=== PATIENT | male | born 1960 ===

== ENCOUNTER 2020-10-09 07:58 | Inpatient (IN) ==
[2020-10-09] MEDS ORDERED: NS 0.9% 1000 ml BAG 1,000 ML IV ONE (08:20)
[2020-10-09 09:12] LABS: ABS Lymphocytes 0.7 10^3/ul (1.0-4.8); ABS Monocytes 0.6 10^3/ul (0-0.8); ABS Neutrophils 9.3 10^3/ul (1.5-7.7); Eosinophil % 0.4 %; Hematocrit 48 % (42-52); Hemoglobin 16.6 g/dL (14.0-18.0); Lymphocyte % 6.5 %; Mean Corpuscular HGB Conc 34 g/dL (31-36); Mean Corpuscular Hemoglobin 31 pg (27-31); Mean Corpuscular Volume 91 fL (80-94); Mean Platelet Volume 9.9 fL (7.4-10.4); Platelet Count 170 10^3/uL (150-450); Red Blood Count 5.34 10^6 /uL (4.18-5.48); Red Cell Distribution Width 13 % (10-15); White Blood Count 10.6 10^3/uL (3.5-10.8)
[2020-10-09 09:25] LABS: Albumin 4.3 g/dL (3.2-5.2); Albumin/Globulin Ratio 1.5 (1-3); C Reactive Protein 10.53 mg/L (<8.01); Calcium 9.4 mg/dL (8.6-10.3); EGFR African American 106.9 (>60); EGFR Non-African American 88.3 (>60); Globulin 2.8 g/dL (2-4); Potassium 3.8 mmol/L (3.5-5.0); Total Bilirubin 1.3 mg/dL (0.2-1.0); Total Protein 7.1 g/dL (6.4-8.9)
[2020-10-09] MEDS ORDERED: Iohexol 300 (CONTRAST) 10 ML SDV IV ONE (09:31)
[2020-10-09] MEDS ORDERED: Ondansetron 4 mg VIAL 2 MG/ML 2 ml VIAL IV ONE (10:12)
[2020-10-09] MEDS ORDERED: Ondansetron 4 mg VIAL 2 MG/ML 2 ml VIAL IV PRN (14:02)
[2020-10-09] MEDS ORDERED: HYDROmorphone 0.5 MG/0.5 ML SYRINGE IV SLOW PU PRN (14:02)
[2020-10-09] MEDS ORDERED: HYDROmorphone 1 MG/1 ML SYRINGE IV SLOW PU PRN (14:09)
[2020-10-09] MEDS: NS 0.9% 1000 ml BAG 1,000 ML IV SCH ×2 (15:27→23:31)
[2020-10-10] MEDS: NS 0.9% 1000 ml BAG 1,000 ML IV SCH ×3 (07:17→19:43)
[2020-10-10] MEDS: Amphetamine/Dextroam ER 10(NF) 10 mg CAP.ER PO SCH (08:37)
[2020-10-10] MEDS ORDERED: diPHENhydraMINE IV 50 MG/ML 1 ml VIAL (BENADRYL) IV PRN (10:18)
[2020-10-10] MEDS ORDERED: diPHENhydraMINE IV 50 MG/ML 1 ml VIAL (BENADRYL) ONE (10:19)
[2020-10-10] MEDS ORDERED: Prochlorperazine 5 mg/ml 2 ml VIAL (10 mg) IV PRN (10:55)
[2020-10-11] MEDS: NS 0.9% 1000 ml BAG 1,000 ML IV SCH ×2 (04:22→12:19)
[2020-10-11 07:00] LABS: ABS Eosinophils 0.4 10^3/ul (0-0.6); ABS Lymphocytes 1.3 10^3/ul (1.0-4.8); ABS Monocytes 0.5 10^3/ul (0-0.8); ABS Neutrophils 4.2 10^3/ul (1.5-7.7); Eosinophil % 6.5 %; Hematocrit 41 % (42-52); Hemoglobin 14.5 g/dL (14.0-18.0); Lymphocyte % 19.6 %; Mean Corpuscular HGB Conc 36 g/dL (31-36); Mean Corpuscular Hemoglobin 32 pg (27-31); Mean Corpuscular Volume 89 fL (80-94); Mean Platelet Volume 9.8 fL (7.4-10.4); Platelet Count 127 10^3/uL (150-450); Red Blood Count 4.58 10^6 /uL (4.18-5.48); Red Cell Distribution Width 13 % (10-15); White Blood Count 6.4 10^3/uL (3.5-10.8)
[2020-10-11 07:20] LABS: Albumin 3.7 g/dL (3.2-5.2); Albumin/Globulin Ratio 1.5 (1-3); Calcium 8.4 mg/dL (8.6-10.3); EGFR African American 124.7 (>60); EGFR Non-African American 103.1 (>60); Globulin 2.5 g/dL (2-4); Potassium 3.6 mmol/L (3.5-5.0); Total Bilirubin 4.6 mg/dL (0.2-1.0); Total Protein 6.2 g/dL (6.4-8.9)
[2020-10-11] MEDS: Amphetamine/Dextroam ER 10(NF) 10 mg CAP.ER PO SCH (08:20)
[2020-10-11 15:23] LABS: Indirect Bilirubin 2.1 mg/dL (0.3-1.0)
[2020-10-11 16:51] LABS: Albumin 3.9 g/dL (3.2-5.2); Albumin/Globulin Ratio 1.4 (1-3); Calcium 8.6 mg/dL (8.6-10.3); EGFR African American 126.6 (>60); EGFR Non-African American 104.6 (>60); Globulin 2.7 g/dL (2-4); Potassium 4.2 mmol/L (3.5-5.0); Total Bilirubin 2.7 mg/dL (0.2-1.0); Total Protein 6.6 g/dL (6.4-8.9)
[2020-10-12] MEDS: NS 0.9% 1000 ml BAG 1,000 ML IV SCH (00:01)
[2020-10-12 06:31] LABS: ABS Basophils 0.1 10^3/ul (0-0.2); ABS Eosinophils 0.5 10^3/ul (0-0.6); ABS Lymphocytes 1.5 10^3/ul (1.0-4.8); ABS Monocytes 0.4 10^3/ul (0-0.8); ABS Neutrophils 4.7 10^3/ul (1.5-7.7); Eosinophil % 6.4 %; Hematocrit 41 % (42-52); Hemoglobin 14.3 g/dL (14.0-18.0); Mean Corpuscular HGB Conc 35 g/dL (31-36); Mean Corpuscular Hemoglobin 31 pg (27-31); Mean Corpuscular Volume 89 fL (80-94); Mean Platelet Volume 9.3 fL (7.4-10.4); Platelet Count 140 10^3/uL (150-450); Red Blood Count 4.57 10^6 /uL (4.18-5.48); Red Cell Distribution Width 13 % (10-15); White Blood Count 7.1 10^3/uL (3.5-10.8)
[2020-10-12 06:47] LABS: Albumin 3.6 g/dL (3.2-5.2); Albumin/Globulin Ratio 1.4 (1-3); Calcium 8.5 mg/dL (8.6-10.3); EGFR African American 119.3 (>60); EGFR Non-African American 98.6 (>60); Globulin 2.5 g/dL (2-4); Potassium 3.8 mmol/L (3.5-5.0); Total Bilirubin 2.1 mg/dL (0.2-1.0); Total Protein 6.1 g/dL (6.4-8.9)
[2020-10-12 07:55] VITALS: BP 153/83
[2020-10-12] MEDS: Amphetamine/Dextroam ER 10(NF) 10 mg CAP.ER PO SCH (09:41)
== END 2020-10-12 09:45 | disposition home or self-care (01) ==
LOC: ED 07:58 → SSU 07:58
PROVIDERS: ADMIT Surgery; ATTEND Surgery